=== PATIENT | male | born 1935 | race Two or more races ===

== ENCOUNTER 2017-12-28 08:58 | Outpatient (CLI) | payer OTHER ==
[~2017-12-28 08:58] MED LIST: ATENOLOL50 MG PO; GLUCOPHAGE XR500 MG PO; HYZAAR 100-121 UDTAB PO; PREVACID30 MG PO; REGLAN PO; ZOCOR20 MG PO
== END 2017-12-28 09:00 | disposition home or self-care (01) ==
LOC: NUCLEAR 08:58
DX: C61 Malignant neoplasm of prostate (principal)
CPT/HCPCS: 78306; A9503

== ENCOUNTER 2018-01-04 11:05 | Outpatient (CLI) | payer OTHER | END 2018-01-04 11:13 | disposition home or self-care (01) | LOC: MRI 11:05 | DX: C61 Malignant neoplasm of prostate (principal); R97.20 Elevated prostate specific antigen [PSA] | CPT/HCPCS: 72196; A9579 ==

== ENCOUNTER 2018-02-06 13:08 | Inpatient (IN) | payer OTHER ==
[~2018-02-06] VITALS: Ht 172.7 cm; Wt 102.5 kg
[2018-02-06] MEDS ORDERED: JANUVIA25 MG (14:02)
== END 2018-02-12 17:10 | disposition home or self-care (01) | DRG 191 ==
LOC: ER 13:08 → MEDI 02-07 09:37 → SEC-K 02-07 09:37 → MEDI 02-07 14:01
PROC: 4A12X4Z Monitoring of Cardiac Electrical Activity, External Approach (ICD-10-PCS; principal; 2018-02-07)
PROC: B246ZZZ Ultrasonography of Right and Left Heart (ICD-10-PCS; 2018-02-07)
PROC: 3E0F7GC Introduction of Other Therapeutic Substance into Respiratory Tract, Via Natural or Artificial Opening (ICD-10-PCS; 2018-02-07)
PROC: BW24ZZZ Computerized Tomography (CT Scan) of Chest and Abdomen (ICD-10-PCS; 2018-02-08)
DX: J44.1 Chronic obstructive pulmonary disease with (acute) exacerbation (principal); J45.41 Moderate persistent asthma with (acute) exacerbation; E66.01 Morbid (severe) obesity due to excess calories; G47.33 Obstructive sleep apnea (adult) (pediatric); E11.22 Type 2 diabetes mellitus with diabetic chronic kidney disease; I12.9 Hypertensive chronic kidney disease with stage 1 through stage 4 chronic kidney disease, or unspecified chronic kidney disease; N18.1 Chronic kidney disease, stage 1

== ENCOUNTER 2020-02-21 14:56 | Emergency (ER) | payer OTHER ==
[~2020-02-21] VITALS: Ht 172.7 cm; Wt 108.9 kg
[~2020-02-21 14:56] MED LIST changes: +JANUVIA25 MG
== END 2020-02-21 22:34 | disposition home or self-care (01) ==
LOC: ER 14:56
DX: S00.83XA Contusion of other part of head, initial encounter (principal); W18.39XA Other fall on same level, initial encounter; Y93.89 Activity, other specified; Y92.098 Other place in other non-institutional residence as the place of occurrence of the external cause; Y99.8 Other external cause status; E11.9 Type 2 diabetes mellitus without complications; I10 Essential (primary) hypertension

== ENCOUNTER 2020-02-29 10:16 | Outpatient (CLI) | payer OTHER | END 2020-02-29 10:24 | disposition home or self-care (01) | LOC: RAD 10:16 | PROVIDERS: ATTEND Neurological Surgery | DX: M54.5 Low back pain (principal); M17.0 Bilateral primary osteoarthritis of knee; M16.0 Bilateral primary osteoarthritis of hip ==

== ENCOUNTER 2020-03-09 14:14 | Emergency (ER) | payer OTHER ==
[2020-03-09] MEDS ORDERED: VERELAN PM300 MG (14:52)
[2020-03-09] MEDS ORDERED: LOSARTAN-HCTZ1 EAC1 (14:53)
[2020-03-09] MEDS ORDERED: ULORIC40 MG (14:54)
[2020-03-09] MEDS ORDERED: LASIX20 MG (14:54)
[2020-03-09] MEDS ORDERED: JANUVIA50 MG (14:55)
[2020-03-09] MEDS ORDERED: SIMBASTATIN (14:57)
[2020-03-09] MEDS ORDERED: SERTRALINE20 MG/1 ML (14:57)
[2020-03-10] MEDS ORDERED: CARDURA XL4 MG (11:19)
== END 2020-03-10 16:24 | disposition designated cancer center or children's hospital (05) ==
LOC: ER → CPU-OBS 15:12 → ER 03-10 16:24
DX: D32.0 Benign neoplasm of cerebral meninges (principal); G93.6 Cerebral edema; D72.828 Other elevated white blood cell count; K57.30 Diverticulosis of large intestine without perforation or abscess without bleeding; J90 Pleural effusion, not elsewhere classified; G47.33 Obstructive sleep apnea (adult) (pediatric); R50.9 Fever, unspecified; E11.22 Type 2 diabetes mellitus with diabetic chronic kidney disease; E11.65 Type 2 diabetes mellitus with hyperglycemia; I12.9 Hypertensive chronic kidney disease with stage 1 through stage 4 chronic kidney disease, or unspecified chronic kidney disease; N18.2 Chronic kidney disease, stage 2 (mild); I27.20 Pulmonary hypertension, unspecified; Z79.84 Long term (current) use of oral hypoglycemic drugs